=== PATIENT | female | born 1985 | race African-American/Black ===

== ENCOUNTER 2018-11-11 09:47 | Emergency (ER) | payer SELFPAY ==
--- NOTE | 2018-11-11 10:48 | ER Document Report ---
ED Medical Screen (RME) - General Chief Complaint: Chest Pain Stated Complaint: CHEST PAIN/DIZZINESS/NAUSEA Time Seen by Provider: 11/11/18 10:42 Primary Care Provider: DWAYNE MENSAH MD [Primary Care Provider] - Follow up as needed Mode of Arrival: Ambulatory Information source: Patient Notes: 33-year-old female presented to ED for chest pain dizziness nausea and high blood pressure. She said she felt like her heart was pounding. She has a history of high blood pressure and asthma. She states she has drank some monsters and red bowls over the last couple days but not today. Patient is alert oriented respirations regular and unlabored chest are clear to auscultation. She states that she is been short of breath for the last several days and it has become more concerning so she came to emergency room. I have greeted and performed a rapid initial assessment of this patient. A comprehensive ED assessment and evaluation of the patient, analysis of test results and completion of medical decision making process will be conducted by an additional ED providers. Dictation of this chart was performed using voice recognition software; therefore, there may be some unintended grammatical errors. TRAVEL OUTSIDE OF THE [place] IN LAST 30 DAYS: No - Related Data Allergies/Adverse Reactions: No Known Allergies Allergy (Unverified 11/11/18 09:49) Past Medical History - Past Medical History Cardiac Medical History: Reports: Hx Hypercholesterolemia Pulmonary Medical History: Reports: Hx Asthma, Hx Bronchitis Neurological Medical History: Reports: Hx Migraine - headaches in the past. Denies: Hx Seizures Renal/ Medical History: Reports: Hx Ovarian Cysts. Denies: Hx Peritoneal Dialysis Musculoskeltal Medical History: Reports Hx Musculoskeletal Deformity, Reports Hx Musculoskeletal Trauma Psychiatric Medical History: Denies: Hx Depression - undiagnosed. pt reports Traumatic Medical History: Reports: Hx Fractures - Foot Past Surgical History: Reports: Hx Gynecologic Surgery - bilateral ovarian cyst removal, Hx Orthopedic Surgery, Hx Tubal Ligation - Immunizations Immunizations up to date: Yes Hx Diphtheria, Pertussis, Tetanus Vaccination: Yes History of Influenza Vaccine for 04/2017 - 08/2017 Season: No Physical Exam - Vital signs Vitals: Temp Pulse Resp BP Pulse Ox 98.0 F 82 16 123/80 99 11/11/18 09:54 11/11/18 09:54 11/11/18 09:54 11/11/18 09:54 11/11/18 09:54 Course - Vital Signs Vital signs: Temp Pulse Resp BP Pulse Ox 98.0 F 82 16 123/80 99 11/11/18 09:54 11/11/18 09:54 11/11/18 09:54 11/11/18 09:54 11/11/18 09:54 Doctor's Discharge - Discharge Referrals: DWAYNE MENSAH MD [Primary Care Provider] - Follow up as needed
[2018-11-11 11:31] LABS: ABSOLUTE EOSINOPHILS # (AUTO) 0.1 10^3/uL (0.0-0.6); ABSOLUTE LYMPHOCYTES (AUTO) 0.9 10^3/uL (0.5-4.7); ABSOLUTE MONOCYTES (AUTO) 0.5 10^3/uL (0.1-1.4); ABSOLUTE NEUT (AUTO) 2.9 10^3/uL (1.7-8.2); BASOPHILS % (AUTO) 0.8 % (0-2); EOSINOPHILS % (AUTO) 1.7 % (0-6); HEMATOCRIT 35.4 % (36.0-47.0); HEMOGLOBIN 11.1 g/dL (12.0-15.5); LYMPHOCYTES % (AUTO) 20.9 % (13-45); MEAN CORPUSCULAR HEMOGLOBIN 23.3 pg (27.0-33.4); MEAN CORPUSCULAR HGB CONC 31.3 g/dL (32.0-36.0); MEAN CORPUSCULAR VOLUME 74 fl (80-97); MONOCYTES % (AUTO) 11.2 % (3-13); PLATELET COUNT 194 10^3/uL (150-450); RED BLOOD COUNT 4.77 10^6/uL (3.72-5.28); RED CELL DISTRIBUTION WIDTH 14.3 % (11.5-14.0); SEGMENTED NEUTROPHILS % (AUTO) 65.4 % (42-78); TOTAL CELLS COUNTED % (AUTO) 100 %; WHITE BLOOD COUNT 4.5 10^3/uL (4.0-10.5)
[2018-11-11 11:37] LABS: APPEARANCE,URINE CLEAR; BILIRUBIN,URINE NEGATIVE (NEGATIVE); COLOR,URINE YELLOW; GLUCOSE, URINE NEGATIVE (NEGATIVE); KETONES,URINE NEGATIVE (NEGATIVE); LEUKOCYTE ESTERASE,URINE NEGATIVE (NEGATIVE); NITRITE,URINE NEGATIVE (NEGATIVE); PROTEIN,URINE NEGATIVE (NEGATIVE); URINE SPECIFIC GRAVITY 1.016; UROBILINOGEN,URINE NEGATIVE mg/dL (<2.0)
[2018-11-11 11:50] LABS: ALANINE AMINOTRANSFERASE 73 U/L (9-52); ALBUMIN 3.8 g/dL (3.5-5.0); ALKALINE PHOSPHATASE 45 U/L (38-126); ANION GAP 7 (5-19); ASPARTATE AMINO TRANSFERASE 55 U/L (14-36); BILIRUBIN,DIRECT 0.2 mg/dL (0.0-0.4); BILIRUBIN,TOTAL 0.2 mg/dL (0.2-1.3); BLOOD UREA NITROGEN 12 mg/dL (7-20); CALCIUM 9.6 mg/dL (8.4-10.2); CARBON DIOXIDE 29 mmol/L (22-30); CHLORIDE 107 mmol/L (98-107); GLUCOSE 81 mg/dL (75-110); LIPASE 68.3 U/L (23-300); SODIUM 142.5 mmol/L (137-145)
--- NOTE | 2018-11-11 12:01 | RADIOLOGY REPORT (SQ) ---
EXAM DESCRIPTION: CHEST 2 VIEWS COMPLETED DATE/TIME: 11/11/2018 11:44 am REASON FOR STUDY: chest pain palpitation COMPARISON: 06/26/2013 EXAM PARAMETERS: NUMBER OF VIEWS: two views TECHNIQUE: Digital Frontal and Lateral radiographic views of the chest acquired. RADIATION DOSE: NA LIMITATIONS: none FINDINGS: LUNGS AND PLEURA: Small pleural effusions are present. No infiltrate or mass. MEDIASTINUM AND HILAR STRUCTURES: No masses or contour abnormalities. HEART AND VASCULAR STRUCTURES: Heart normal size. No evidence for failure. BONES: No acute findings. HARDWARE: None in the chest. OTHER: No other significant finding. IMPRESSION: Small pleural effusions. TECHNICAL DOCUMENTATION: JOB ID: [id number] [employer]- All Rights Reserved Reading location - IP/workstation name: [email or web address]
[2018-11-11 12:05] LABS: CREATINE KINASE MB 0.82 ng/mL (<4.55); TROPONIN I < 0.012 ng/mL
--- NOTE | 2018-11-11 12:33 | ER Document Report ---
ED General - General Chief Complaint: Chest Pain Stated Complaint: CHEST PAIN/DIZZINESS/NAUSEA Time Seen by Provider: 11/11/18 10:42 Primary Care Provider: DWAYNE MENSAH MD [ACTIVE STAFF] - Follow up in 3-5 days Mode of Arrival: Ambulatory Information source: Patient Notes: Patient presents to the emergency department complaints of nausea numbness and tingling chest pain that felt tight then loose like her heart was beating really fast and she felt dizzy. She reports this happened at 9:00 while she was at work. She reports the eyes feels like she is got a hiccup feeling. Patient reports history of anxiety hypertension. Reports history of EtOH abuse but has been sober for 9 months. Patient denies the chest pain at this time but reports little nausea. Reports a hiccuping feeling. Denies fever vomiting diarrhea. Denies pain with void. TRAVEL OUTSIDE OF THE [place] IN LAST 30 DAYS: No - HPI Onset: This morning Onset/Duration: Sudden Pain Level: 4 Associated symptoms: Nausea Exacerbated by: Denies Relieved by: Denies Similar symptoms previously: Yes Recently seen / treated by doctor: No - Related Data Allergies/Adverse Reactions: No Known Allergies Allergy (Verified 11/11/18 11:16) Past Medical History - General Information source: Patient Last Menstrual Period: 10/02/18 - Social History Smoking Status: Never Smoker Chew tobacco use (# tins/day): No Frequency of alcohol use: None Drug Abuse: None Family History: Reviewed & Not Pertinent Patient has suicidal ideation: No Patient has homicidal ideation: No - Past Medical History Cardiac Medical History: Reports: Hx Hypercholesterolemia Pulmonary Medical History: Reports: Hx Asthma, Hx Bronchitis Neurological Medical History: Reports: Hx Migraine - headaches in the past. Denies: Hx Seizures Renal/ Medical History: Reports: Hx Ovarian Cysts. Denies: Hx Peritoneal Dialysis Musculoskeletal Medical History: Reports Hx Musculoskeletal Deformity, Reports Hx Musculoskeletal Trauma Psychiatric Medical History: Denies: Hx Depression - undiagnosed. pt reports Traumatic Medical History: Reports: Hx Fractures - Foot Past Surgical History: Reports: Hx Gynecologic Surgery - bilateral ovarian cyst removal, Hx Orthopedic Surgery, Hx Tubal Ligation - Immunizations Immunizations up to date: Yes Hx Diphtheria, Pertussis, Tetanus Vaccination: Yes Review of Systems - Review of Systems Notes: -Review HPI for review of systems., All other systems negative Physical Exam - Vital signs Vitals: Temp Pulse Resp BP Pulse Ox 98.0 F 82 16 123/80 99 11/11/18 09:54 11/11/18 09:54 11/11/18 09:54 11/11/18 09:54 11/11/18 09:54 - Notes Notes: PHYSICAL EXAMINATION: GENERAL: Well-appearing and in no acute distress HEAD: Atraumatic, normocephalic. EYES: Pupils equal round and reactive to light, extraocular movements intact, sclera anicteric, conjunctiva are normal. ENT: nares patent, oropharynx clear without exudates. Moist mucous membranes. NECK: Normal range of motion, supple without lymphadenopathy LUNGS: CTAB and equal. No wheezes rales or rhonchi. HEART: Regular rate and rhythm without murmurs ABDOMEN: Soft, no tenderness. No guarding, no rebound EXTREMITIES: Normal range of motion, no pitting edema. No cyanosis. NEUROLOGICAL: Cranial nerves grossly intact. Normal sensory/motor exams. PSYCH: Normal mood, normal affect. SKIN: Warm, Dry, normal turgor, no rashes or lesions noted Course - Re-evaluation Re-evalutation: 11/11/18 16:29 Labs unremarkable troponins negative EKG is sinus rhythm consulted dr adams regarding pleural effusions, ct and cxray reviewed with labs and pt c/o. he advised doxy and repeat chest xray 10 days to 2 weeks to recheck. 11/11/18 16:[address] chest x-ray result for pleural effusions. Patient instructed on Doxy and the importance of return here for repeat chest x-ray. She verbalized understanding to all instructions. - Vital Signs Vital signs: Temp Pulse Resp BP Pulse Ox 98.1 F 82 18 119/83 99 11/11/18 15:00 11/11/18 09:54 11/11/18 15:00 11/11/18 14:00 11/11/18 15:00 - Laboratory Result Diagrams: 11/11/18 11:08 11/11/18 11:08 Laboratory results interpreted by me: 11/11/18 11/11/18 11/11/18 11:08 11:08 11:08 Hgb 11.1 L Hct 35.4 L MCV 74 L MCH 23.3 L MCHC 31.3 L RDW 14.3 H AST 55 H ALT 73 H Urine Blood MODERATE H - Diagnostic Test Radiology reviewed: Image reviewed, Reports reviewed Discharge - Discharge Clinical Impression: Dizziness, Pleural effusion Chest pain Qualifiers: Chest pain type: unspecified Qualified Code(s): R07.9 - Chest pain, unspecified Condition: Stable Disposition: HOME, SELF-CARE Instructions: [facility], Chest Pain of Unclear Cause ([facility]), Doxycycline ([facility]), Family Physicians / Practices, Pleural Effusion ([facility]) Additional Instructions: *You have been evaluated for chest pain, dizziness, pleural effusions *Take medication as prescribed *Follow up with a primary care provider within one week *Plan repeat chest xray within 10 days to 2 weeks *Return to ED for worsening condition, changes, needs, difficulty breathing, concerns Prescriptions: Doxycycline Hyclate 100 mg PO BID #20 capsule Forms: Return to Work Referrals: DWAYNE MENSAH MD [ACTIVE STAFF] - Follow up in 3-5 days
--- NOTE | 2018-11-11 13:02 | EKG REPORT ---
SEVERITY:- BORDERLINE ECG - SINUS RHYTHM BORDERLINE PROLONGED QT INTERVAL : Confirmed by: Van Mercer MD 11-Nov-2018 13:02:14
[2018-11-11] MEDS ORDERED: ONDANSETRON 4 MG TAB.RAPDIS PO ONE (14:05)
--- NOTE | 2018-11-11 16:11 | RADIOLOGY REPORT (SQ) ---
EXAM DESCRIPTION: CT CHEST WITHOUT COMPLETED DATE/TIME: 11/11/2018 3:58 pm REASON FOR STUDY: pleural effusion eval COMPARISON: 11/11/2018 TECHNIQUE: CT scan performed of the chest without intravenous contrast. Images reviewed with lung, soft tissue and bone windows. Reconstructed coronal and sagittal MPR images reviewed. All images st ored on PACS. All CT scanners at this facility use dose modulation, iterative reconstruction, and/or weight based d osing when appropriate to reduce radiation dose to as low as reasonably achievable (ALARA). [facility]: Dose Right [facility]: CareDose [facility]: Dose Right [facility]: Teradose 4D [facility]: Smart MindSet Rx RADIATION DOSE: CT Rad equipment meets quality standard of care and radiation dose reduction techniq ues were employed. CTDIvol: 13.5 mGy. DLP: 547 mGy-cm. mGy. LIMITATIONS: No technical limitations. FINDINGS: LUNGS AND PLEURA: There are trace bilateral pleural effusions with mild bibasilar ground-g lass opacities. No pneumothorax. No discrete nodules or masses. HILAR AND MEDIASTINAL STRUCTURES: No identified masses or abnormal nodes. No obvious aneurysm. HEART AND VASCULAR STRUCTURES: No aneurysm. No pericardial effusion. UPPER ABDOMEN: No significant findings. Limited exam. THYROID AND OTHER SOFT TISSUES: No masses. No adenopathy. BONES: No significant finding. HARDWARE: None in the chest. OTHER: No other significant findings. IMPRESSION: Trace bilateral pleural effusions, left greater than right. Minimal bibasilar ground-gl ass opacities likely atelectatic change although infectious/inflammatory etiology not entirely exclud ed. TECHNICAL DOCUMENTATION: JOB ID: [id number] Quality ID # [id number]: Final reports with documentation of one or more dose reduction techniques (e.g., Au tomated exposure control, adjustment of the mA and/or kV according to patient size, use of iterative reconstruction technique) 2010 [employer]- All Rights Reserved Reading location - IP/workstation name: [email or web address]
[2018-11-11] MEDS ORDERED: DOXYCYCLINE HYCLATE 100 MG TABLET PO ONE (16:39)
[2018-11-11 16:43] VITALS: BP 103/64
--- NOTE | 2018-11-11 18:55 | EKG REPORT ---
SEVERITY:- NORMAL ECG - SINUS RHYTHM : Confirmed by: Van Mercer MD 11-Nov-2018 18:54:08
== END 2018-11-11 16:50 | disposition home or self-care (01) ==
LOC: ER 09:47
DX: R11.0 Nausea (principal); J90 Pleural effusion, not elsewhere classified; R42 Dizziness and giddiness; R20.0 Anesthesia of skin; R20.2 Paresthesia of skin; R07.89 Other chest pain; I10 Essential (primary) hypertension; J45.909 Unspecified asthma, uncomplicated
CPT/HCPCS: 93005; 99285; 36415; 82553; 82962; 83690; 84703; 85025; 80053; 81001; 84484; 71046; 71250; 93010; S0119